=== PATIENT | male | born 1945 | race Asian ===

== ENCOUNTER 2019-03-19 06:57 | Day surgery (SDC) | payer MEDICAID ==
[~2019-03-19] VITALS: Ht 168.9 cm; Wt 68.2 kg
[~2019-03-19 06:57] MED LIST: SODIUM CHLORIDE 0.9% 1,000 ML IV ONE
[2019-03-19] MEDS ORDERED: BENZOCAINE 20% 50 MCG/SPRAY 57 GM TP ONE (06:58)
[2019-03-19] MEDS ORDERED: LIDOCAINE 4% 50 ML SOLUTION TP ONE (06:58)
[2019-03-19] MEDS ORDERED: LIDOCAINE 2% 30 ML JELLY TP ONE (06:58)
[2019-03-19] MEDS: SODIUM CHLORIDE 0.9% 1,000 ML IV ONE (07:54)
[2019-03-19] MEDS ORDERED: MIDAZOLAM HCL 2 MG/2 ML VIAL ONE (08:05)
[2019-03-19] MEDS ORDERED: FentaNYL CITRATE-PF 100 MCG/2 ML VIAL ONE (08:05)
[2019-03-19] MEDS ORDERED: MethylPREDNISolone SOD SUCC 125 MG/2 ML VIAL ONE (09:13)
[2019-03-19] MEDS: MethylPREDNISolone SOD SUCC 125 MG/2 ML VIAL IVP ONE (09:14)
[2019-03-19] MEDS ORDERED: OMEP20 PO (10:05)
[2019-03-19] MEDS ORDERED: ATOR10TA84 PO (10:05)
[2019-03-19] MEDS ORDERED: FLUT16H NASAL (10:05)
[2019-03-19] MEDS ORDERED: LOSA50TA64 PO (10:05)
[2019-03-19] MEDS ORDERED: PRED20 PO (10:05)
[2019-03-19] MEDS ORDERED: MONT10TA21 PO (10:05)
[2019-03-19] MEDS ORDERED: BECL10.62 IH (10:05)
[2019-03-19] MEDS ORDERED: TRAZ-252 PO (10:05)
[2019-03-19] MEDS ORDERED: LEVO500 PO (10:05)
[2019-03-19] MEDS ORDERED: ALBU8HFA IH (10:05)
[2019-03-19] MEDS ORDERED: AMLO10TA7 PO (10:05)
[2019-03-19] MEDS ORDERED: OXYGEN THERAPY IH SCH (20:00)
== END 2019-03-19 10:20 | disposition home or self-care (01) ==
LOC: SURGERY 06:57
PROVIDERS: ATTEND Internal Medicine Critical Care Medicine
DX: J38.4 Edema of larynx (principal); B37.0 Candidal stomatitis; Z72.89 Other problems related to lifestyle; Z87.01 Personal history of pneumonia (recurrent); Z87.891 Personal history of nicotine dependence; E78.00 Pure hypercholesterolemia, unspecified; Z79.899 Other long term (current) drug therapy; Z98.890 Other specified postprocedural states
CPT/HCPCS: 31623; 31624; 71045; 87015; 87070; 87101; 87205; 87206; 87220; 88108; 88312; J2250; J2930; J3010; J7030

== ENCOUNTER 2020-05-14 06:41 | Day surgery (SDC) | payer MEDICAID ==
[~2020-05-14] VITALS: Ht 170.2 cm; Wt 73.2 kg
[~2020-05-14 06:41] MED LIST changes: +ALBU8HFA IH; +AMLO-258 PO; +ATOR10TA84 PO; +BECL10.62 IH; +FLUT16H NASAL; +LEVO-72 PO; +LOSA50TA37 PO; +MONT-35 PO; +OMEP20 PO; +PRED20 PO; +SODIUM CHLORIDE 0.9% 1,000 ML ONE; +TRAZ-252 PO
[2020-05-14] MEDS ORDERED: LIDOCAINE 2% 30 ML JELLY TP ONE (06:42)
[2020-05-14] MEDS ORDERED: ALBUTEROL SULFATE 2.5 MG/0.5 ML NEB SOLUTION NEB ONE (06:42)
[2020-05-14] MEDS ORDERED: LIDOCAINE 4% 50 ML SOLUTION TP ONE (06:42)
[2020-05-14] MEDS ORDERED: BENZOCAINE 20% 50 MCG/SPRAY 57 GM TP ONE (06:42)
[2020-05-14 07:23] LABS: COVID AG,FIA SOURCE NASOPHARYNGEAL
[2020-05-14] MEDS ORDERED: AMOX1TAB41 PO (07:47)
[2020-05-14] MEDS ORDERED: MIDAZOLAM HCL 2 MG/2 ML VIAL ONE (08:12)
[2020-05-14] MEDS ORDERED: FentaNYL CITRATE-PF 100 MCG/2 ML VIAL ONE (08:13)
[2020-05-14] MEDS ORDERED: MethylPREDNISolone SOD SUCC 125 MG/2 ML VIAL IVP ONE (09:00)
[2020-05-14] MEDS ORDERED: MethylPREDNISolone SOD SUCC 125 MG/2 ML VIAL ONE (09:22)
[2020-05-14] MEDS ORDERED: OXYGEN THERAPY IH SCH (20:00)
== END 2020-05-14 10:35 | disposition home or self-care (01) ==
LOC: SURGERY 06:41
PROVIDERS: ATTEND Internal Medicine Critical Care Medicine
DX: J38.4 Edema of larynx (principal); B37.0 Candidal stomatitis; I10 Essential (primary) hypertension; E78.00 Pure hypercholesterolemia, unspecified; Z20.828 Contact with and (suspected) exposure to other viral communicable diseases
CPT/HCPCS: 31623; 31624; 71045; 87015; 87070; 87077; 87101; 87186; 87205; 87206; 87220; 87426; 88108; 88312; C9803; J2250; J2930; J3010; J7030; J7613; Z7610

== ENCOUNTER 2021-10-23 06:07 | Day surgery (SDC) | payer MEDICAID ==
[~2021-10-23] VITALS: Ht 170.2 cm; Wt 72.7 kg
[~2021-10-23 06:07] MED LIST changes: -ALBU8HFA IH; +AMOX1TAB41 PO; -FLUT16H NASAL; -LEVO-72 PO; -LOSA50TA37 PO; +PRED-554 PO; -PRED20 PO; -SODIUM CHLORIDE 0.9% 1,000 ML IV ONE; -SODIUM CHLORIDE 0.9% 1,000 ML ONE
[2021-10-23] MEDS ORDERED: BENZOCAINE 20% 50 MCG/SPRAY 57 GM TP ONE (06:08)
[2021-10-23] MEDS ORDERED: ALBUTEROL SULFATE 2.5 MG/0.5 ML NEB SOLUTION NEB ONE (06:08)
[2021-10-23] MEDS ORDERED: LIDOCAINE 2% 30 ML JELLY TP ONE (06:08)
[2021-10-23] MEDS ORDERED: SODIUM CHLORIDE 0.9% 1,000 ML IV ONE (06:30)
[2021-10-23 06:41] LABS: COVID AG,FIA SOURCE NASOPHARYNGEAL
[2021-10-23] MEDS ORDERED: SODIUM CHLORIDE 0.9% 1,000 ML ONE (07:14)
[2021-10-23] MEDS ORDERED: FentaNYL CITRATE PF 100 MCG/2 ML VIAL ONE (07:19)
[2021-10-23] MEDS ORDERED: MIDAZOLAM HCL 5 MG/ML VIAL ONE (07:20)
[2021-10-23] MEDS ORDERED: MethylPREDNISolone SOD SUCC 125 MG/2 ML VIAL IVP ONE (09:15)
[2021-10-23] MEDS ORDERED: OXYGEN THERAPY IH SCH (20:00)
== END 2021-10-23 11:00 | disposition home or self-care (01) ==
LOC: SURGERY 06:07
PROVIDERS: ATTEND Internal Medicine Critical Care Medicine
DX: J38.4 Edema of larynx (principal); B37.0 Candidal stomatitis; I10 Essential (primary) hypertension; Z79.899 Other long term (current) drug therapy
CPT/HCPCS: 31623; 31624; 71045; 87015; 87070; 87101; 87206; 87220; 87426; 88184; 88185; C9803; J2250; J2930; J3010; J7030; 88112; 88312; J7613

== ENCOUNTER 2023-04-01 06:56 | Day surgery (SDC) | payer OTHER ==
[~2023-04-01] VITALS: Ht 170.2 cm; Wt 72.7 kg
[~2023-04-01 06:56] MED LIST changes: -AMOX1TAB41 PO; +ATOR10TA PO; -ATOR10TA84 PO
[2023-04-01] MEDS ORDERED: LIDOCAINE 4% 50 ML SOLUTION TP ONE (06:57)
[2023-04-01] MEDS ORDERED: LIDOCAINE 2% 11 ML JELLY TP ONE (06:57)
[2023-04-01] MEDS ORDERED: BENZOCAINE 20% 50 MCG/SPRAY 57 GM TP ONE (06:57)
[2023-04-01] MEDS ORDERED: ALBUTEROL SULFATE 2.5 MG/0.5 ML NEB SOLUTION NEB ONE (06:57)
[2023-04-01] MEDS ORDERED: SODIUM CHLORIDE 0.9% 1,000 ML IV ONE (07:00)
[2023-04-01] MEDS ORDERED: SODIUM CHLORIDE 0.9% 1,000 ML ONE (07:02)
[2023-04-01] MEDS ORDERED: MIDAZOLAM HCL 2 MG/2 ML VIAL ONE (08:13)
[2023-04-01] MEDS ORDERED: FentaNYL CITRATE PF 100 MCG/2 ML VIAL ONE (08:13)
[2023-04-01] MEDS ORDERED: MethylPREDNISolone SOD SUCC 125 MG/2 ML VIAL ONE (09:07)
[2023-04-01 09:15] VITALS: PULSE 59; RESP 18; O2SAT 97
[2023-04-01] MEDS ORDERED: MethylPREDNISolone SOD SUCC 125 MG/2 ML VIAL IVP ONE (09:15)
[2023-04-01] MEDS ORDERED: PROMETHAZINE HCL/CODEINE 6.25-10MG/5ML SOLUTION UDCUP PO ONE (09:45)
== END 2023-04-01 11:15 | disposition home or self-care (01) ==
LOC: SURGERY 06:56
PROVIDERS: ATTEND Internal Medicine Critical Care Medicine
DX: J38.4 Edema of larynx (principal); B37.0 Candidal stomatitis; J39.8 Other specified diseases of upper respiratory tract; Z87.01 Personal history of pneumonia (recurrent); Z98.890 Other specified postprocedural states; Z79.899 Other long term (current) drug therapy
CPT/HCPCS: 31623; 87206; 87101; 87220; 87070; 87186; 87015; 31624; 94640; 71045; J3010; J2250; J2930; Q9967; J7030; 88112; J7613; Z7610